=== PATIENT | female | born 1970 | race Caucasian/White ===

== ENCOUNTER → 2018-05-16 | Outpatient (CLI) | payer BC, OTHER | END | disposition home or self-care (01) | LOC: CFH 08:09 → EDSTATUS 08:30 | PROVIDERS: ATTEND Family Medicine | DX: Z12.31 Encounter for screening mammogram for malignant neoplasm of breast (principal); R10.11 Right upper quadrant pain | CPT/HCPCS: 76705 ==

== ENCOUNTER 2018-06-28 11:51 | Emergency (ER) | payer BC, OTHER ==
[~2018-06-28] VITALS: Ht 167.6 cm; Wt 79.5 kg
[2018-06-28] MEDS ORDERED: MECLIZINE CHEWABLE 25 MG TAB PO ONE (12:30)
[2018-06-28] MEDS ORDERED: ONDANSETRON 2MG/ML, 2ML IVPush ONE (12:30)
[2018-06-28] MEDS ORDERED: SODIUM CHLORIDE FLUSH 10ML SYR IVF ONE (12:30)
[2018-06-28] MEDS ORDERED: ONDANSETRON 2MG/ML, 2ML ONE (12:35)
[2018-06-28] MEDS ORDERED: MECLIZINE CHEWABLE 25 MG TAB ONE (12:35)
[2018-06-28 12:45] LABS: BASOPHILS # (AUTO) 0.01 x10^3/uL (0-0.1); BASOPHILS % (AUTO) 0 % (0-1); EOSINOPHILS # (AUTO) 0.08 x10^3/uL (0-0.4); EOSINOPHILS % (AUTO) 2 % (1-7); LYMPHOCYTES # (AUTO) 1.43 x10^3/uL (1-3.4); LYMPHOCYTES % (AUTO) 31 % (22-44); MD NO; MEAN CORPUSCULAR HEMOGLOBIN 29.3 pg (27.0-34.8); MEAN CORPUSCULAR HGB CONC 33.6 g/dL (32.4-35.8); MEAN CORPUSCULAR VOLUME 87.3 fL (80-100); MEAN PLATELET VOLUME 8.5 fL (7.4-10.4); MONOCYTES # (AUTO) 0.57 x10^3/uL (0.2-0.8); MONOCYTES % (AUTO) 12 % (2-9); NEUTROPHILS % (AUTO) 55 % (42-75); PLATELET COUNT 240 x10^3/uL (130-400); RED BLOOD COUNT 4.77 x10^6/uL (3.82-5.3); RED CELL DISTRIBUTION WIDTH 13.2 % (9.6-15.2)
[2018-06-28 12:46] LABS: MICROSCOPIC NOT IND
[2018-06-28 12:47] LABS: CULTURE INDICATED? NO
[2018-06-28 13:08] LABS: ALANINE AMINOTRANSFERASE 38 U/L (12-78); ALBUMIN 4.1 g/dL (3.4-5.0); ANION GAP 11 mmol/L (5-15); CALCIUM 9.1 mg/dL (8.5-10.1); CHLORIDE 104 mmol/L (98-107); CREATININE 1.24 mg/dL (0.55-1.02)
[2018-06-28 13:12] LABS: ALKALINE PHOSPHATASE 35 U/L (45-117); BILIRUBIN,TOTAL 0.7 mg/dL (0.2-1.0); TOTAL PROTEIN 7.7 g/dL (6.4-8.2); TROPONIN I < 0.015 ng/mL (0.000-0.045)
[2018-06-28 14:01] VITALS: BP 128/75
== END 2018-06-28 14:03 | disposition home or self-care (01) ==
LOC: ED 13:36
DX: R42 Dizziness and giddiness (principal)
CPT/HCPCS: 36415; 80053; 81003; 84484; 85025; 93005; 96374; 99285; J2405

== ENCOUNTER 2019-07-25 08:49 | Outpatient (CLI) | payer BC, OTHER | END 2019-07-25 23:59 | disposition home or self-care (01) | LOC: CFH 08:49 | PROVIDERS: ATTEND Specialist | DX: R92.2 Inconclusive mammogram (principal) | CPT/HCPCS: 76642; 77065 ==